=== PATIENT | female | born 1990 | race American Indian/Alaskan Native ===

== ENCOUNTER 2020-11-07 17:22 | Emergency (ER) | payer SELFPAY ==
[2020-11-07] MEDS ORDERED: SODIUM CHLORIDE 0.9% 1000 ML 1,000 ML IV ONE (17:55)
[2020-11-07 18:18] LABS: Basophils % (Auto) 0.1 % (0.0-1.8); Hematocrit 40.6 % (30.3-42.9); Lymphocytes # (Auto) 1.1 K/mm3 (1.2-5.4); Lymphocytes % (Auto) 6.9 % (13.4-35.0); Mean Corpuscular HGB Conc 35 % (30-34); Mean Corpuscular Volume 92 fl (79-97); Monocytes # (Auto) 0.7 K/mm3 (0.0-0.8); Monocytes % (Auto) 4.8 % (0.0-7.3); Platelet Count 236 K/mm3 (140-440); Red Blood Count 4.42 M/mm3 (3.65-5.03); Red Cell Distribution Width 13.6 % (13.2-15.2)
--- NOTE | 2020-11-07 18:21 | Emergency Department Report ---
ED General Adult HPI - General Chief complaint: Seizure Stated complaint: SEIZURE Time Seen by Provider: 11/07/20 17:55 Source: EMS Mode of arrival: Ambulatory Limitations: No Limitations - History of Present Illness Initial comments: Patient is a 30-year-old female presents emergency department for evaluation of generalized tonic-clonic seizure just prior to arrival [place] the mall, patient notes that standing laceration to the back of her head during fall. Patient also noted urinary incontinence during seizure activity. Patient states she smokes marijuana and took Adderall 2 days ago, otherwise denies drug or alcohol use. Patient denies other injury, denies recent fever or illness, denies chest pain, shortness of breath, denies seizure history. Severity scale (0 -10): 1 - Related Data Previous Rx's Medication Instructions Recorded Last Taken Type Nitrofurantoin Macrocrystal 100 mg PO BID #14 capsule 11/07/20 Unknown Rx [Nitrofurantoin] Allergies Allergy/AdvReac Type Severity Reaction Status Date / Time Penicillins Allergy Unknown Unknown Verified 11/07/20 18:36 ED Review of Systems ROS: Stated complaint: SEIZURE Other details as noted in HPI Comment: All other systems reviewed and negative ED Past Medical Hx - Past Medical History Previous Medical History?: Yes - Surgical History Past Surgical History?: No - Social History Smoking Status: Never Smoker - Medications Home Medications: Home Medications Medication Instructions Recorded Confirmed Last Taken Type Nitrofurantoin Macrocrystal 100 mg PO BID #14 capsule 11/07/20 Unknown Rx [Nitrofurantoin] ED Physical Exam - General Limitations: No Limitations General appearance: alert, in no apparent distress - Head Head exam: Present: normocephalic, other (Hematoma, 2 cm linear laceration to posterior scalp) - Eye Eye exam: Present: normal appearance - ENT ENT exam: Present: mucous membranes moist - Neck Neck exam: Present: normal inspection - Respiratory Respiratory exam: Present: normal lung sounds bilaterally. Absent: respiratory distress - Cardiovascular Cardiovascular Exam: Present: regular rate, normal rhythm - GI/Abdominal GI/Abdominal exam: Present: soft, tenderness (Moderate right lower quadrant tenderness, moderate suprapubic tenderness) - Extremities Exam Extremities exam: Present: normal inspection - Back Exam Back exam: Present: normal inspection - Neurological Exam Neurological exam: Present: alert, oriented X3 - Psychiatric Psychiatric exam: Present: normal affect, normal mood - Skin Skin exam: Present: warm, dry, intact, normal color. Absent: rash ED Course Vital Signs 11/07/20 11/07/20 11/07/20 17:45 18:33 19:25 Temperature 98.6 F 98.2 F Pulse Rate 75 72 Respiratory 18 18 20 Rate Blood Pressure 127/76 Blood Pressure 127/76 119/63 [Right] O2 Sat by Pulse 100 100 100 Oximetry 11/07/20 20:33 Temperature Pulse Rate Respiratory 18 Rate Blood Pressure Blood Pressure [Right] O2 Sat by Pulse Oximetry - Reevaluation(s) Reevaluation #1: 11/07/20 18:57 Patient initially treated with IV normal saline 1 L x 1. Patient abruptly com plains of abdominal pain and nausea, given Zofran 4 mg IV x1, CT abdomen pelvis added. Reevaluation #2: 11/07/20 20:05 Patient treated with Rocephin IV, Toradol IV, Benadryl IV. On reevaluation, patient in no acute distress, denies headache, neuro exam nonfocal, abdomen soft nontender. Patient advised to follow-up with neurology for reevaluation and management of seizure disorder, advised to follow-up with PMD or ER in 5 to 7 days for staple removal. Patient made aware she has Arnold Chiari malformation likely contributing to seizure disorder, consequently given information for neurology follow-up 11/09/20 08:22 - Laceration /Wound Repair Posterior Head Wound Location: head Wound Length (cm): 2 Wound's Depth, Shape: linear Wound Explored: clean Irrigated w/ Saline (ccs): 30 Betadine Prep?: Yes Anesthesia: Lidocaine w/ Epi Number of Sutures: 6 (junior) ED Medical Decision Making - Lab Data Result diagrams: 11/07/20 18:02 11/07/20 18:02 Labs 11/07/20 11/07/20 11/07/20 18:02 18:02 18:17 WBC 15.1 H RBC 4.42 Hgb 14.0 Hct 40.6 MCV 92 MCH 32 MCHC 35 H RDW 13.6 Plt Count 236 Lymph % (Auto) 6.9 L Pope % (Auto) 4.8 Eos % (Auto) 0.0 Baso % (Auto) 0.1 Lymph # (Auto) 1.1 L Pope # (Auto) 0.7 Eos # (Auto) 0.0 Baso # (Auto) 0.0 Seg Neutrophils % 88.2 H Seg Neutrophils # 13.4 H Sodium 134 L Potassium 4.2 Chloride 104.6 Carbon Dioxide 19 L Anion Gap 15 BUN 10 Creatinine 0.8 Estimated GFR > 60 BUN/Creatinine Ratio 13 Glucose 91 Calcium 8.9 HCG, Qual Negative Urine Color Urine Turbidity Urine pH Ur Specific [place] Urine Protein Urine Glucose (UA) Urine Ketones Urine Blood Urine Nitrite Urine Bilirubin Urine Urobilinogen Ur Leukocyte Esterase Urine WBC (Auto) Urine RBC (Auto) U Epithel Cells (Auto) Urine Mucus Urine Yeast (Budding) Urine Opiates Screen Urine Methadone Screen Ur Barbiturates Screen Ur Phencyclidine Scrn U Benzodiazepines Scrn Urine Cocaine Screen 11/07/20 11/07/20 19:27 19:27 WBC RBC Hgb Hct MCV MCH MCHC RDW Plt Count Lymph % (Auto) Pope % (Auto) Eos % (Auto) Baso % (Auto) Lymph # (Auto) Pope # (Auto) Eos # (Auto) Baso # (Auto) Seg Neutrophils % Seg Neutrophils # Sodium Potassium Chloride Carbon Dioxide Anion Gap BUN Creatinine Estimated GFR BUN/Creatinine Ratio Glucose Calcium HCG, Qual Urine Color Yellow Urine Turbidity Slightly-cloudy Urine pH 6.0 Ur Specific [place] 1.010 Urine Protein <15 mg/dl Urine Glucose (UA) Neg Urine Ketones Tr Urine Blood Neg Urine Nitrite Neg Urine Bilirubin Neg Urine Urobilinogen < 2.0 Ur Leukocyte Esterase Lg Urine WBC (Auto) 57.0 H Urine RBC (Auto) 7.0 U Epithel Cells (Auto) 10.0 Urine Mucus Few Urine Yeast (Budding) Few Urine Opiates Screen Negative Urine Methadone Screen Negative Ur Barbiturates Screen Negative Ur Phencyclidine Scrn Negative U Benzodiazepines Scrn Negative Urine Cocaine Screen Negative Vital Signs 11/07/20 11/07/20 17:45 18:33 Temperature 98.6 F Pulse Rate 75 Respiratory 18 18 Rate Blood Pressure 127/76 Blood Pressure 127/76 [Right] O2 Sat by Pulse 100 100 Oximetry - Radiology Data Radiology results: report reviewed Abdomen pelvis CT negative per radiology, CT head negative per radiology Critical care attestation.: If time is entered above; I have spent that time in minutes in the direct care of this critically ill patient, excluding procedure time. ED Disposition Clinical Impression: Seizure, Scalp laceration, Acute cystitis, Head injury, Arnold-Chiari ma lformation, type I Disposition: DC-01 TO HOME OR SELFCARE Is pt being admited?: No Condition: Stable Instructions: Chiari Malformation, Urinary Tract Infection, Adult, Sutures, [place], or Adhesive Wound Closure, [id number], Seizure, Adult, [id number] Additional Instructions: Follow-up with neurology in 1 to 2 days for evaluation and management of seizure disorder. Follow-up with PMD or ER in 5 to 7 days for staple removal. Return to the emergency department for worsening symptoms. Prescriptions: Nitrofurantoin Macrocrystal [Nitrofurantoin] 100 mg PO BID #14 capsule Referrals: KEVIN GELLER MD [Staff Physician] - 3-5 Days PRIMARY CAREMD [Primary Care Provider] - 3-5 Days
[2020-11-07] MEDS ORDERED: ONDANSETRON 4 MG/2 ML INJ ONE (18:23)
[2020-11-07] MEDS ORDERED: LIDOCAINE 2%/EPINEPHRINE 1:100,000 VIAL (20 ML) INFILTRATI ONE (18:28)
[2020-11-07 18:36] LABS: BUN/Creatinine Ratio 13; Blood Urea Nitrogen 10 mg/dL (7-17); Calcium 8.9 mg/dL (8.4-10.2); Hemolysis Index 6
[2020-11-07] MEDS ORDERED: ONDANSETRON 4 MG/2 ML INJ IV ONE ×2 (18:36→18:37)
--- NOTE | 2020-11-07 19:27 | XRay Report ---
CHEST 1 VIEW 1847 INDICATION / CLINICAL INFORMATION: weakness COMPARISON: None available. FINDINGS: SUPPORT DEVICES: None HEART / MEDIASTINUM: No significant abnormality. LUNGS / PLEURA: No significant pulmonary or pleural abnormality. No pneumothorax. ADDITIONAL FINDINGS: No significant additional findings. IMPRESSION: No significant acute abnormality Signer Name: Aime Savage MD Signed: 11/07/2020 7:23 PM Workstation Name: [id number]
[2020-11-07 19:47] LABS: Bilirubin,Urine NEG (Negative); Blood,Urine NEG (Negative); Color,Urine Yellow (Yellow); Mucus,Urine FEW /HPF; Protein,Urine <15 mg/dL mg/dL (Negative); Urobilinogen,Urine < 2.0 mg/dL (<2.0)
[2020-11-07] MEDS ORDERED: diphenhydrAMINE 50 MG/ML VIAL ONE (19:48)
[2020-11-07 19:51] LABS: Benzodiazepines Screen,Urine Negative; Cocaine Screen,Urine Negative; Methadone Screen,Urine Negative; Opiate Screen,Urine Negative
[2020-11-07] MEDS ORDERED: diphenhydrAMINE 50 MG/ML VIAL IV ONE (19:54)
[2020-11-07] MEDS ORDERED: KETOROLAC 30 MG/1 ML INJ IV ONE (19:54)
[2020-11-07] MEDS ORDERED: cefTRIAXone/NS 1 GM/50 ML 1 GM/50 ML BAG IV ONE (19:55)
--- NOTE | 2020-11-07 20:02 | Cat Scan Report ---
NONENHANCED CT SCAN OF THE HEAD: INDICATION / CLINICAL INFORMATION: 30 years Female; trauma/new onset seizure. TECHNIQUE: Routine CT head without contrast. All CT scans at this location are performed using CT dos e reduction for ALARA by means of automated exposure control. COMPARISON: None. FINDINGS: BRAIN / INTRACRANIAL CONTENTS: No intracranial sequela from the trauma; no scalp hematoma; no air-flu id level in the visualized portions of the paranasal sinuses No acute hemorrhage, mass effect, midline shift, hydrocephalus, or acute, large territorial infarct. No chronic infarct or focal atrophy. Normal brain volume and ventricular/sulcal size for age. No sign ificant white matter abnormality. Given the history of seizures, no space taking lesion in the temporal lobes are frontal lobes; normal temporal horn tips suggest normal hippocampi; no heterotopia CRANIOCERVICAL JUNCTION: Abnormal; cerebellar tonsils extending below the foramen magnum; fullness at the foramen magnum; no hydrocephalus; fourth ventricle, fastigium and corpus callosum normal; Chiari type I malformation ORBITS: No significant abnormality of visualized orbits. SINUSES / MASTOIDS: No significant abnormality of the visualized paranasal sinuses or mastoid air gabbie ls. ADDITIONAL FINDINGS: None. IMPRESSION: No intracranial sequela from the trauma No space taking lesion in the temporal and frontal lobes; normal hippocampi Tonsillar ectopia suggesting Chiari type I malformation Signer Name: Padmaja Wong MD Signed: 11/07/2020 7:57 PM Workstation Name: [id number]
[2020-11-07 20:06] LABS: Amphetamine Screen,Urine Positive; Cannabinoid Screen,Urine Positive
--- NOTE | 2020-11-07 20:07 | Cat Scan Report ---
CT ABDOMEN AND PELVIS WITH CONTRAST INDICATION: RLQ pain CONTRAST: 100 cc Omnipaque 300 IV COMPARISON: None available. All CT scans at this location are performed using CT dose reduction for ALARA by means of automated e xposure control. FINDINGS: Lung bases are clear. No pneumoperitoneum is noted. Gallbladder and bile ducts appear withi n normal limits. No abdominal masses are seen. No lymphadenopathy is noted. No evidence of bowel obst ruction is seen. Some portions of the colon are difficult to evaluate due to lack of distention but n o obvious inflammation is seen. Appendix is partially seen and shows no obvious abnormalities. No inf lammation is seen in this area. No urinary obstructive changes are seen. Small amount of nonspecific free fluid is seen in the pelvis. The left ovary shows both a 2.8 cm cystic area is slightly above th e water range at 22 Hounsfield units which may just be physiologic but there is an adjacent mostly fa t density 3.1 cm mass which is consistent with a dermoid. In the right adnexal area there is a modera tely collapsed cyst which may relate to the free fluid in the pelvis and could relate to the patient' s symptoms. IMPRESSION: 1. Moderately collapsed right ovarian cyst with pelvic free fluid, possibly relating to the current s ymptomatology 2. Left adnexal dermoid Signer Name: Aime Savage MD Signed: 11/07/2020 8:03 PM Workstation Name: [id number]
[2020-11-07 21:06] VITALS: BP 119/63
--- NOTE | 2020-11-09 11:12 | Electrocardiograph Report ---
[facility] Test Date: 2020-11-07 Test Time: 19:16:24 Pat Name: BYRON TAVERA Department: Room: Gender: F Hide Buffer: JEEVAN : 1990 Requested By: RUDOLPH BUREDN Order Number: [id number] Reading MD: Eric Martinez Measurements Intervals [place] Rate: 69 P: 37 [place]: 129 QRS: 64 QRSD: 85 T: 19 QT: 386 QTc: 415 Interpretive Statements Sinus rhythm No previous ECG available for comparison Electronically Signed On 11-09-2020 8:12:08 PDT by Eric Martinez
== END 2020-11-07 20:45 | disposition home or self-care (01) ==
LOC: ED 17:22
DX: S01.01XA Laceration without foreign body of scalp, initial encounter (principal); S09.90XA Unspecified injury of head, initial encounter; G40.909 Epilepsy, unspecified, not intractable, without status epilepticus; N30.00 Acute cystitis without hematuria; G93.5 Compression of brain; Z79.899 Other long term (current) drug therapy; Z88.0 Allergy status to penicillin; X58.XXXA Exposure to other specified factors, initial encounter; Y93.01 Activity, walking, marching and hiking; Y92.59 Other trade areas as the place of occurrence of the external cause; Y99.8 Other external cause status
CPT/HCPCS: 12001; 36415; 70450; 71045; 74177; 80048; 80307; 81001; 84703; 85025; 87086; 93005; 96361; 96365; 96375; 99285; J0696; J1200; J1885; J2405; J7030; Q9967

== ENCOUNTER 2020-11-14 17:08 | Emergency (ER) | payer SELFPAY ==
[2020-11-14 18:09] VITALS: BP 100/57
--- NOTE | 2020-11-14 19:00 | Emergency Department Report ---
Suture/Staple Removal - [facility] Chief Complaint: Laceration/Recheck/Suture Stated Complaint: STAPLE REMOVAL Time Seen by Provider: 11/14/20 18:51 When Sutures or Junior Placed: 11/07/20 Wound Location: posterior scalp ED Review of Systems ROS: Stated complaint: STAPLE REMOVAL Other details as noted in HPI Comment: All other systems reviewed and negative ED Past Medical Hx - Past Medical History Previous Medical History?: No - Surgical History Past Surgical History?: No - Social History Smoking Status: Never Smoker - Medications Home Medications: Home Medications Medication Instructions Recorded Confirmed Last Taken Type Nitrofurantoin Macrocrystal 100 mg PO BID #14 capsule 11/07/20 Unknown Rx [Nitrofurantoin] Suture Removal Exam - Exam General: Vital signs noted. No distress. Alert and acting appropriately. Wound: No Pathologic Erythema, No Tenderness, No Drainage, No Pus, No Wound Dehiscence Other Systems: All other systems reviewed and are unremarkable. ED Course Vital Signs 11/14/20 11/14/20 18:08 18:09 Temperature 98.2 F Pulse Rate 61 Respiratory 18 Rate Blood Pressure 100/57 O2 Sat by Pulse 100 Oximetry ED Recheck MDM - Medical Decision Making Patient is a 30-year-old female presents emergency room for staple removal. She states that she had the junior placed at this facility a week ago. She denies any drainage, fever, increasing pain, numbness, weakness, vomiting, chills. Vitals are stable. On exam there are [address], good skin approximation, it appears to be healed, clean, dry, intact, no signs of infection, no signs of wound dehiscence. All junior removed without any difficulty or complication. There is no bleeding, no wound dehiscence, no drainage. Advised patient to follow-up with primary care doctor. Return to emergency room for new or worsening symptoms. Critical care attestation.: If time is entered above; I have spent that time in minutes in the direct care of this critically ill patient, excluding procedure time. ED Disposition Clinical Impression: Removal of junior Disposition: DC-01 TO HOME OR SELFCARE Is pt being admited?: No Does the pt Need Aspirin: No Condition: Stable Instructions: Wound Closure Removal, Care After Additional Instructions: Follow-up with your primary care doctor. Return to emergency room for any worsening symptoms. Referrals: MELLO BEAN MD [Staff Physician] - 3-5 Days [facility] [Provider Group] - 3-5 Days Time of Disposition: 19:03 Print Language: PERUVIAN
== END 2020-11-14 19:27 | disposition home or self-care (01) ==
LOC: ED 17:08
DX: S01.01XD Laceration without foreign body of scalp, subsequent encounter (principal); Z88.0 Allergy status to penicillin; X58.XXXD Exposure to other specified factors, subsequent encounter

== ENCOUNTER 2021-04-20 22:45 | Emergency (ER) | payer SELFPAY ==
[2021-04-20 23:40] VITALS: BP 122/57
[2021-04-21] MEDS ORDERED: ONDANSETRON 4 MG ODT TAB PO ONE (00:06)
[2021-04-21] MEDS ORDERED: ONDANSETRON 4 MG ODT TAB ONE (00:06)
--- NOTE | 2021-04-21 00:09 | Emergency Department Report ---
ED General Adult HPI - General Chief complaint: Nausea/Vomiting/Diarrhea Stated complaint: AB PAIN Time Seen by Provider: 04/20/21 23:59 Source: patient Mode of arrival: Ambulatory Limitations: No Limitations - History of Present Illness Initial comments: 30-year-old female patient presents to the emergency department with complaints of abdominal pain, nausea, and vomiting starting 2 days ago. No known sick contacts. No current steroid use. Patient is currently taking Flagyl for bacterial vaginosis. States she was evaluated via telemedicine and treated empirically without diagnostic testing. States the vaginal discharge for which she initiated the telemedicine consultation has since improved. No prior history of abdominal surgeries. Last menstrual cycle was April 06. Also endorses burning with urination. Denies fever, chills, diarrhea, vaginal bleeding, appetite changes. Denies all other complaints at this time. - Related Data Previous Rx's Medication Instructions Recorded Last Taken Type Nitrofurantoin Macrocrystal 100 mg PO BID #14 capsule 11/07/20 Unknown Rx [Nitrofurantoin] Allergies Allergy/AdvReac Type Severity Reaction Status Date / Time Penicillins Allergy Unknown Unknown Verified 11/14/20 18:05 ED Review of Systems ROS: Stated complaint: AB PAIN Other details as noted in HPI Other: GENERAL: Negative for fever, chills, weight change, anorexia, fatigue. ENT: Negative for ear pain, difficulty hearing, sore throat, nasal congestion, epistaxis. CARDIOVASCULAR: Negative for chest pain, palpitations, lower extremity swelling. PULMONARY: Negative for cough, dyspnea, wheezing, orthopnea, cyanosis. GASTROINTESTINAL: Positive for abdominal pain, nausea, vomiting. GENITOURINARY: Positive for burning with urination and vaginal discharge. MUSCULOSKELETAL: Negative for joint pain, joint swelling, myalgias, back pain, neck pain. NEUROLOGICAL: Negative for headache, seizure, syncope, paresthesias, weakness. INTEGUMENTARY: Negative for erythema, rash, diaphoresis, laceration, ecchymosis. HEMATOLOGICAL: Negative for hemoptysis, hematemesis, hematochezia, hematuria. PSYCHIATRIC: Negative for hallucinations, suicidal ideation, homicidal ideation, anxiety, depression. ED Past Medical Hx - Past Medical History Previous Medical History?: Yes Hx Seizures: Yes - Surgical History Past Surgical History?: Yes Additional Surgical History: ectopic preg - Social History Smoking Status: Never Smoker Substance Use Type: None - Medications Home Medications: Home Medications Medication Instructions Recorded Confirmed Last Taken Type Nitrofurantoin Macrocrystal 100 mg PO BID #14 capsule 11/07/20 Unknown Rx [Nitrofurantoin] ED Physical Exam - General Limitations: No Limitations - Other Other exam information: General: Awake and alert. No acute distress. Head: Atraumatic, normocephalic. Eyes: EOMI. Pupils are equal and round. Normal sclera and conjunctiva. ENT: Oral mucosa is moist. Normal pharyngeal exam. Neck: Supple. No lymphadenopathy. Pulmonary: No respiratory distress. Clear to auscultation bilaterally. Cardiac: Regular rate and rhythm. Pulses are palpable and equal bilaterally. No lower extremity cyanosis or edema. Skin: Warm and dry. No rashes. Abdomen: Soft, non-protuberant. Left lower quadrant and right lower quadrant tenderness without guarding, rigidity, or rebound. Bowel sounds are normal. No organomegaly or masses noted. Pelvic: Patient left AGAINST MEDICAL ADVICE before pelvic examination could be performed. Back: Normal alignment. Bilateral CVA tenderness, right > left. Extremities: Symmetrical. Full range of motion intact. Neurological: Alert and oriented, appropriately interactive, no focal deficits. Psych: Cooperative. Appropriate mood and affect. Speech is evenly metered. Thoughts are logically construed. ED Course Vital Signs 04/20/21 23:39 Temperature 98.1 F Pulse Rate 73 Respiratory 18 Rate Blood Pressure 122/57 O2 Sat by Pulse 98 Oximetry ED Medical Decision Making - Lab Data Result diagrams: 04/21/21 00:06 04/21/21 00:06 - Medical Decision Making Differential diagnosis including but not limited to: appendicitis, pyelonephritis, ectopic , pelvic inflammatory disease, tubo-ovarian abscess, urinary tract infection, ovarian cyst/torsion Patient chose to leave the emergency department AGAINST MEDICAL ADVICE prior to completion of physical examination and diagnostic evaluation. The patient chooses to leave AGAINST MEDICAL ADVICE. The patients ability to make an informed decision has been assessed and it has been determined that the patient has the capacity to comprehend the information about their current medical condition and appreciate the impact of the disease and the consequence of various options for treatment, including forgoing treatment. The patient possesses the ability to evaluate all treatment options, compare the risks and benefits of each option, communicate this choice in a consistent manner over time, and is able to make choices that are not irrational. The patient has been informed about the ideal further testing, treatments, and evaluations that may be indicated during the current emergency department visit as well as any possible alternatives that could be accomplished in a timely manner. The patient is aware of the possible risks of foregoing any or all of these interventions and the patient acknowledges that the decision to leave may result in undesirable consequences such as , permanent disability and/or loss of current lifestyle. Even through leaving AGAINST MEDICAL ADVICE is not ideal, the patient has been instructed to follow any discharge instructions given, take any medications prescribed, and resume care as soon as possible with another provider. Additionally, it has been clearly stated that the patient is welcome to return at any time to continue care at this facility. Critical care attestation.: If time is entered above; I have spent that time in minutes in the direct care of this critically ill patient, excluding procedure time. ED Disposition Clinical Impression: Left against medical advice Disposition: 01 HOME / SELF CARE / HOMELESS Is pt being admited?: No Does the pt Need Aspirin: No Condition: Undetermined Additional Instructions: You have chosen to leave the hospital AGAINST MEDICAL ADVICE. Return to the emergency department immediately for new or worsening symptoms. Forms: AMA Form Time of Disposition: 04:39
[2021-04-21 00:38] LABS: Basophils % (Auto) 0.4 % (0.0-1.8); Eosinophils # (Auto) 0.1 K/mm3 (0.0-0.4); Eosinophils % (Auto) 0.8 % (0.0-4.3); Hematocrit 39.8 % (30.3-42.9); Hemoglobin 13.3 gm/dl (10.1-14.3); Lymphocytes # (Auto) 2.8 K/mm3 (1.2-5.4); Lymphocytes % (Auto) 30.8 % (13.4-35.0); Mean Corpuscular HGB Conc 33 % (30-34); Mean Corpuscular Volume 92 fl (79-97); Monocytes # (Auto) 0.5 K/mm3 (0.0-0.8); Monocytes % (Auto) 5.8 % (0.0-7.3); Platelet Count 311 K/mm3 (140-440); Red Blood Count 4.34 M/mm3 (3.65-5.03); Red Cell Distribution Width 12.7 % (13.2-15.2)
[2021-04-21 00:51] LABS: Alanine Aminotransferase 6 units/L (7-56); Albumin 4.8 g/dL (3.9-5); BUN/Creatinine Ratio 10; Blood Urea Nitrogen 8 mg/dL (7-17); Hemolysis Index 4
== END 2021-04-21 04:50 | disposition home or self-care (01) ==
LOC: ED 22:45
DX: R10.9 Unspecified abdominal pain (principal); R11.2 Nausea with vomiting, unspecified; Z79.899 Other long term (current) drug therapy; Z88.0 Allergy status to penicillin; Z86.69 Personal history of other diseases of the nervous system and sense organs; Z98.890 Other specified postprocedural states
CPT/HCPCS: 36415; 80053; 83735; 84703; 85025; Q0162

== ENCOUNTER 2021-07-16 15:36 | Emergency (ER) | payer SELFPAY ==
[2021-07-16] MEDS ORDERED: ACETAMINOPHEN 325 MG TAB PO ONE (16:05)
[2021-07-16] MEDS ORDERED: METOCLOPRAMIDE 10 MG TAB PO ONE (16:05)
--- NOTE | 2021-07-16 16:07 | Emergency Department Report ---
ED Female HPI - General Stated complaint: PAIN Time Seen by Provider: 07/16/21 15:59 Source: patient Mode of arrival: Ambulatory Limitations: No Limitations - History of Present Illness Initial comments: Patient is a 30-year-old female presents emergency room with complaints of lower abdominal cramping that began 4 to 5 days ago. She states her last menstrual cycle was 06/04/2021. She has associated nausea and occasional vomiting. She denies any fever, diarrhea, dysuria, abnormal vaginal discharge, vaginal bleeding. Past medical history of ectopic . Allergy to penicillin. /P: 1/A: 2. she states she took a positive home test but has not yet seen anyone or had an US. - Related Data Previous Rx's Medication Instructions Recorded Last Taken Type Nitrofurantoin Macrocrystal 100 mg PO BID #14 capsule 11/07/20 Unknown Rx [Nitrofurantoin] Acetaminophen [Tylenol] 650 mg PO Q8HR PRN #20 capsule 07/16/21 Unknown Rx Metoclopramide [Reglan] 10 mg PO Q8HR PRN #12 tab 07/16/21 Unknown Rx Nitrofurantoin [place]/M-Cryst 100 mg PO BID 5 Days #10 capsule 07/16/21 Unknown Rx [Macrobid CAP] Allergies Allergy/AdvReac Type Severity Reaction Status Date / Time Penicillins Allergy Unknown Unknown Verified 07/16/21 16:52 ED Review of Systems ROS: Stated complaint: PAIN Other details as noted in HPI Comment: All other systems reviewed and negative ED Past Medical Hx - Past Medical History Hx Seizures: Yes - Surgical History Additional Surgical History: ectopic preg - Social History Smoking Status: Never Smoker Substance Use Type: None - Medications Home Medications: Home Medications Medication Instructions Recorded Confirmed Last Taken Type Nitrofurantoin Macrocrystal 100 mg PO BID #14 capsule 11/07/20 07/16/21 Unknown Rx [Nitrofurantoin] Acetaminophen [Tylenol] 650 mg PO Q8HR PRN #20 capsule 07/16/21 Unknown Rx Metoclopramide [Reglan] 10 mg PO Q8HR PRN #12 tab 07/16/21 Unknown Rx Nitrofurantoin [place]/M-Cryst 100 mg PO BID 5 Days #10 capsule 07/16/21 Unknown Rx [Macrobid CAP] ED Physical Exam - General Limitations: No Limitations General appearance: alert, in no apparent distress - Head Head exam: Present: atraumatic, normocephalic - Eye Eye exam: Present: normal appearance - ENT ENT exam: Present: mucous membranes moist - Respiratory Respiratory exam: Present: normal lung sounds bilaterally. Absent: respiratory distress, wheezes, rales, rhonchi, stridor, chest wall tenderness, accessory muscle use, decreased breath sounds, prolonged expiratory - Cardiovascular Cardiovascular Exam: Present: regular rate, normal rhythm, normal heart sounds. Absent: systolic murmur, diastolic murmur, rubs, gallop - GI/Abdominal GI/Abdominal exam: Present: soft, normal bowel sounds. Absent: distended, tenderness, guarding, rebound, rigid - Neurological Exam Neurological exam: Present: alert, oriented X3 - Psychiatric Psychiatric exam: Present: normal affect, normal mood - Skin Skin exam: Present: warm, dry, intact ED Course Vital Signs 07/16/21 07/16/21 07/16/21 16:00 16:16 16:46 Temperature 98.0 F 97.9 F Pulse Rate 80 75 Respiratory 16 16 14 Rate Blood Pressure 129/54 Blood Pressure 121/69 [Right] O2 Sat by Pulse 99 100 Oximetry 07/16/21 07/16/21 07/16/21 16:48 16:49 20:10 Temperature 97.9 F Pulse Rate 81 66 Respiratory 14 14 16 Rate Blood Pressure 121/68 Blood Pressure [Right] O2 Sat by Pulse 100 100 100 Oximetry ED Medical Decision Making - Lab Data Result diagrams: 07/16/21 16:11 07/16/21 16:11 Lab Results 07/16/21 07/16/21 07/16/21 Range/Units 16:11 16:11 16:11 WBC 10.8 (4.5-11.0) K/mm3 RBC 3.98 (3.65-5.03) M/mm3 Hgb 11.9 (10.1-14.3) gm/dl Hct 36.2 (30.3-42.9) % MCV 91 (79-97) fl MCH 30 (28-32) pg MCHC 33 (30-34) % RDW 13.1 L (13.2-15.2) % Plt Count 264 (140-440) K/mm3 Lymph % (Auto) 12.2 L (13.4-35.0) % Clinton % (Auto) 5.0 (0.0-7.3) % Eos % (Auto) 0.5 (0.0-4.3) % Baso % (Auto) 0.2 (0.0-1.8) % Lymph # (Auto) 1.3 (1.2-5.4) K/mm3 [place] # (Auto) 0.5 (0.0-0.8) K/mm3 Eos # (Auto) 0.1 (0.0-0.4) K/mm3 Baso # (Auto) 0.0 (0.0-0.1) K/mm3 Seg Neutrophils % 82.1 H (40.0-70.0) % Seg Neutrophils # 8.9 H (1.8-7.7) K/mm3 Sodium 138 (137-145) mmol/L Potassium 3.8 (3.6-5.0) mmol/L Chloride 104.2 (98-107) mmol/L Carbon Dioxide 21 L (22-30) mmol/L Anion Gap 17 mmol/L BUN 5 L (7-17) mg/dL Creatinine 0.6 (0.6-1.2) mg/dL Estimated GFR > 60 ml/min BUN/Creatinine Ratio 8 % Glucose 155 H (65-100) mg/dL Calcium 8.8 (8.4-10.2) mg/dL Total Bilirubin 0.60 (0.1-1.2) mg/dL AST 12 (5-40) units/L ALT 7 (7-56) units/L Alkaline Phosphatase 48 (35-129) units/L Total Protein 6.8 (6.3-8.2) g/dL Albumin 4.1 (3.9-5) g/dL Albumin/Globulin Ratio 1.5 % HCG, Quant 35109 H (0-4) mIU/mL Urine Color (Yellow) Urine Turbidity (Clear) Urine pH (5.0-7.0) Ur Specific [place] (1.003-1.030) Urine Protein (Negative) mg/dL Urine Glucose (UA) (Negative) mg/dL Urine Ketones (Negative) mg/dL Urine Blood (Negative) Urine Nitrite (Negative) Urine Bilirubin (Negative) Urine Urobilinogen (<2.0) mg/dL Ur Leukocyte Esterase (Negative) Urine WBC (Auto) (0.0-6.0) /HPF Urine RBC (Auto) (0.0-6.0) /HPF U Epithel Cells (Auto) (0-13.0) /HPF Urine Bacteria (Auto) (Negative) /HPF Urine Mucus /HPF Urine HCG, Qual (Negative) Blood Type 07/16/21 07/16/21 Range/Units 16:46 Unknown WBC (4.5-11.0) K/mm3 RBC (3.65-5.03) M/mm3 Hgb (10.1-14.3) gm/dl Hct (30.3-42.9) % MCV (79-97) fl MCH (28-32) pg MCHC (30-34) % RDW (13.2-15.2) % Plt Count (140-440) K/mm3 Lymph % (Auto) (13.4-35.0) % [place] % (Auto) (0.0-7.3) % Eos % (Auto) (0.0-4.3) % Baso % (Auto) (0.0-1.8) % Lymph # (Auto) (1.2-5.4) K/mm3 [place] # (Auto) (0.0-0.8) K/mm3 Eos # (Auto) (0.0-0.4) K/mm3 Baso # (Auto) (0.0-0.1) K/mm3 Seg Neutrophils % (40.0-70.0) % Seg Neutrophils # (1.8-7.7) K/mm3 Sodium (137-145) mmol/L Potassium (3.6-5.0) mmol/L Chloride (98-107) mmol/L Carbon Dioxide (22-30) mmol/L Anion Gap mmol/L BUN (7-17) mg/dL Creatinine (0.6-1.2) mg/dL Estimated GFR ml/min BUN/Creatinine Ratio % Glucose (65-100) mg/dL Calcium (8.4-10.2) mg/dL Total Bilirubin (0.1-1.2) mg/dL AST (5-40) units/L ALT (7-56) units/L Alkaline Phosphatase (35-129) units/L Total Protein (6.3-8.2) g/dL Albumin (3.9-5) g/dL Albumin/Globulin Ratio % HCG, Quant (0-4) mIU/mL Urine Color Yellow (Yellow) Urine Turbidity Cloudy (Clear) Urine pH 6.0 (5.0-7.0) Ur Specific [place] 1.021 (1.003-1.030) Urine Protein 30 mg/dl (Negative) mg/dL Urine Glucose (UA) 150 (Negative) mg/dL Urine Ketones 20 (Negative) mg/dL Urine Blood Neg (Negative) Urine Nitrite Neg (Negative) Urine Bilirubin Neg (Negative) Urine Urobilinogen 2.0 (<2.0) mg/dL Ur Leukocyte Esterase Lg (Negative) Urine WBC (Auto) 36.0 H (0.0-6.0) /HPF Urine RBC (Auto) 4.0 (0.0-6.0) /HPF U Epithel Cells (Auto) 44.0 H (0-13.0) /HPF Urine Bacteria (Auto) 1+ (Negative) /HPF Urine Mucus 2+ /HPF Urine HCG, Qual Positive A (Negative) Blood Type B NEGATIVE Vital Signs 07/16/21 07/16/21 07/16/21 16:00 16:16 16:46 Temperature 98.0 F 97.9 F Pulse Rate 80 75 Respiratory 16 16 14 Rate Blood Pressure 129/54 Blood Pressure 121/69 [Right] O2 Sat by Pulse 99 100 Oximetry 07/16/21 07/16/21 07/16/21 16:48 16:49 20:10 Temperature 97.9 F Pulse Rate 81 66 Respiratory 14 14 16 Rate Blood Pressure 121/68 Blood Pressure [Right] O2 Sat by Pulse 100 100 100 Oximetry - Radiology Data Radiology results: report reviewed Ordering Physician: JOHN STRATTON Date of Service: 07/16/21 Procedure(s): US OB <= 14 weeks fetus Accession Number(s): [id number] cc: JOHN SRTATTON OB Ultrasound HISTORY: , pain. TECHNIQUE: Grayscale and color imaging performed. COMPARISON: None FINDINGS: Uterus measures 9.1 x 5.5 x 6.2 cm. An intrauterine gestational sac is present with mean diameter of 18 mm corresponding with an EGA of 6 weeks and 5 days. Estimated delivery date is 03/06/2022. Clinical gestational age of 6 weeks and 0 days. A yolk sac is present. No pole identified. No free fluid. Left ovary contains a simple cyst, likely functional. Right ovary not visualized. IMPRESSION: 1. Intrauterine gestational sac as above. 2. Simple likely functional left ovarian cyst. Right ovary not visualized. Signer Name: Uli Burns MD Signed: 07/16/2021 7:16 PM Workstation Name: [id number] Transcribed By: DOMINIQUE Dictated By: Uli Burns MD Electronically Authenticated By: Uli Burns MD Signed Date/Time: 07/16/211915 DD/ 13 TD/TT: - Medical Decision Making Patient is a 30-year-old female presents emergency room with complaints of lower abdominal cramping that began 4 to 5 days ago. She states her last menstrual cycle was 06/04/2021. She has associated nausea and occasional vomiting. She denies any fever, diarrhea, dysuria, abnormal vaginal discharge, vaginal bleeding. Past medical history of ectopic . Allergy to penicillin. /P: 1/A: 2. she states she took a positive home test but has not yet seen anyone or had an US. vitals are normal. No abdominal [place] [address]. UA shows evidence of UTI. Patient denies any bleeding. OB ultrasound 1. Intrauterine gestational sac as above. 2. Simple likely functional left ovarian cyst. Right ovary not visualized. Discussed all findings with patient. Discussed the importance of close [employer] follow-up. Discussed return precautions. Advised patient Please take medication as prescribed. Increase your fluid intake. Please practice pelvic rest. Follow- up with [employer] [facility]. Return to emergency room for any new or worsening symptoms. Critical care attestation.: If time is entered above; I have spent that time in minutes in the direct care of this critically ill patient, excluding procedure time. ED Disposition Clinical Impression: Nausea Abdominal pain Qualifiers: Abdominal location: lower abdomen, unspecified Qualified Code(s): R10.30 - Lower abdominal pain, unspecified Qualifiers: Weeks of gestation: less than 8 weeks Qualified Code(s): Z3A.01 - Less than 8 weeks gestation of UTI (urinary tract infection) Qualifiers: Urinary tract infection type: acute cystitis Hematuria presence: with hematuria Qualified Code(s): N30.01 - Acute cystitis with hematuria Ovarian cyst Qualifiers: Laterality: right Qualified Code(s): N83.201 - Unspecified ovarian cyst, right side Disposition: 01 HOME / SELF CARE / HOMELESS Is pt being admited?: No Does the pt Need Aspirin: No Condition: Stable Instructions: Abdominal Pain During , [id number], Urinary Tract Infection, Adult, [id number], Ovarian Cyst, [id number] Additional Instructions: Please take medication as prescribed. Increase your fluid intake. Please practice pelvic rest. Follow-up with [employer] [facility]. Return to emergency room for any new or worsening symptoms. Prescriptions: Nitrofurantoin [place]/M-Cryst [Macrobid CAP] 100 mg PO BID 5 Days #10 capsule Metoclopramide [Reglan] 10 mg PO Q8HR PRN #12 tab PRN Reason: nausea/vomiting Acetaminophen [Tylenol] 650 mg PO Q8HR PRN #20 capsule PRN Reason: pain Referrals: YUNG SOARES MD [Staff Physician] - 2-3 Days PRIMARY CARE, [Primary Care Provider] - 2-3 Days Time of Disposition: 19:38 Print Language: ALBANIAN
[2021-07-16 16:43] LABS: Basophils % (Auto) 0.2 % (0.0-1.8); Eosinophils # (Auto) 0.1 K/mm3 (0.0-0.4); Eosinophils % (Auto) 0.5 % (0.0-4.3); Hematocrit 36.2 % (30.3-42.9); Hemoglobin 11.9 gm/dl (10.1-14.3); Lymphocytes # (Auto) 1.3 K/mm3 (1.2-5.4); Lymphocytes % (Auto) 12.2 % (13.4-35.0); Mean Corpuscular HGB Conc 33 % (30-34); Mean Corpuscular Volume 91 fl (79-97); Monocytes # (Auto) 0.5 K/mm3 (0.0-0.8); Platelet Count 264 K/mm3 (140-440); Red Blood Count 3.98 M/mm3 (3.65-5.03); Red Cell Distribution Width 13.1 % (13.2-15.2)
[2021-07-16 16:51] VITALS: BP 121/68
[2021-07-16 17:03] LABS: Alanine Aminotransferase 7 units/L (7-56); Albumin 4.1 g/dL (3.9-5); Blood Urea Nitrogen 5 mg/dL (7-17); Calcium 8.8 mg/dL (8.4-10.2); Hemolysis Index 3
[2021-07-16 17:05] LABS: BUN/Creatinine Ratio 8
[2021-07-16 17:20] LABS: Bacteria,Urine 1+ /HPF (Negative); Bilirubin,Urine NEG (Negative); Blood,Urine NEG (Negative); Color,Urine Yellow (Yellow); Mucus,Urine 2+ /HPF
[2021-07-16 17:28] LABS: HCG Qualitative,Urine Positive (Negative)
--- NOTE | 2021-07-16 19:20 | Ultrasound Report ---
OB Ultrasound HISTORY: , pain. TECHNIQUE: Grayscale and color imaging performed. COMPARISON: None FINDINGS: Uterus measures 9.1 x 5.5 x 6.2 cm. An intrauterine gestational sac is present with mean di ameter of 18 mm corresponding with an EGA of 6 weeks and 5 days. Estimated delivery date is 03/06/2022 . Clinical gestational age of 6 weeks and 0 days. A yolk sac is present. No pole identified. No free fluid. Left ovary contains a simple cyst, likely functional. Right ovary not visualized. IMPRESSION: 1. Intrauterine gestational sac as above. 2. Simple likely functional left ovarian cyst. Right ovary not visualized. Signer Name: Uli Burns MD Signed: 07/16/2021 7:16 PM Workstation Name: [id number]
== END 2021-07-16 20:10 | disposition home or self-care (01) ==
LOC: ED 15:36
DX: O23.41 Unspecified infection of urinary tract in pregnancy, first trimester (principal); N39.0 Urinary tract infection, site not specified; N83.201 Unspecified ovarian cyst, right side; Z3A.01 Less than 8 weeks gestation of pregnancy
CPT/HCPCS: 36415; 76801; 80053; 81001; 81025; 84702; 85025; 86900; 86901; 87086; 99284